=== PATIENT | female | born 1970 | race African-American/Black ===

== ENCOUNTER 2021-01-19 18:00 | Emergency (ER) | payer BC ==
[~2021-01-19] VITALS: Ht 157.5 cm; Wt 68.0 kg
[2021-01-19 20:12] LABS: CLARITY URINE CLEAR (CLEAR); COLOR URINE YELLOW (YELLOW); KETONES URINE NEGATIVE (NEGATIVE); LEUKOCYTE ESTERASE URINE TRACE (NEGATIVE); NITRITE URINE NEGATIVE (NEGATIVE); OCCULT BLOOD URINE NEGATIVE (NEGATIVE); PROTEIN URINE 3+ (NEGATIVE); SPECIFIC GRAVITY URINE 1.025 (1.005-1.030); UROBILINOGEN URINE 0.2 E.U./dL (0.2-1.0)
[2021-01-19 20:47] LABS: PHENCYCLIDINE URINE SCREEN NEGATIVE (NEGATIVE)
[2021-01-19 20:49] LABS: *AMPHETAMINES SCREEN URINE NEGATIVE (NEGATIVE); *BARBITURATES SCREEN URINE NEGATIVE (NEGATIVE); *BENZODIAZEPINES SCREEN URINE NEGATIVE (NEGATIVE); *COCAINE SCREEN URINE NEGATIVE (NEGATIVE); CANNABINOID URINE SCREEN NEGATIVE (NEGATIVE); METHADONE URINE SCREEN NEGATIVE (NEGATIVE); OPIATES URINE SCREEN PRESUMTIVE POSITIVE (NEGATIVE)
[2021-01-19 22:25] VITALS: BP 128/81
== END 2021-01-19 22:26 | disposition home or self-care (01) ==
LOC: ER 18:00
DX: R80.9 Proteinuria, unspecified (principal); N17.0 Acute kidney failure with tubular necrosis; F19.10 Other psychoactive substance abuse, uncomplicated; E86.0 Dehydration; K59.00 Constipation, unspecified; F11.10 Opioid abuse, uncomplicated
CPT/HCPCS: 80305; 81003; 81025; 99283